=== PATIENT | male | born 1950 | race Caucasian/White ===

== ENCOUNTER 2016-11-15 07:43 | Emergency (ER) | payer MEDICARE, OTHER ==
[~2016-11-15] VITALS: Ht 177.8 cm; Wt 142.2 kg
[~2016-11-15 07:43] MED LIST: AMOX1TAB64 PO; ASPI-496 PO; CHOL2000 PO; LISI-167 PO; MULT-412 PO; ROSU5TAB PO; TAMS0.4C2 PO
[2016-11-15 09:17] VITALS: BP 119/50
== END 2016-11-15 09:19 | disposition home or self-care (01) ==
LOC: ED 08:08
DX: M79.662 Pain in left lower leg (principal); I10 Essential (primary) hypertension; E78.00 Pure hypercholesterolemia, unspecified; Z86.718 Personal history of other venous thrombosis and embolism
CPT/HCPCS: 93005; 99284

== ENCOUNTER 2017-02-09 19:21 | Emergency (ER) | payer MEDICARE, OTHER ==
[~2017-02-09] VITALS: Ht 177.8 cm; Wt 141.8 kg
[2017-02-09] MEDS ORDERED: ROSU10TA PO (20:45)
[2017-02-09 20:51] LABS: BLOOD UREA NITROGEN 24 mg/dL (7-18)
[2017-02-09 21:53] VITALS: BP 114/63
== END 2017-02-09 21:55 | disposition home or self-care (01) ==
LOC: ED 21:50
DX: R60.0 Localized edema (principal); E78.00 Pure hypercholesterolemia, unspecified; I10 Essential (primary) hypertension; Z86.718 Personal history of other venous thrombosis and embolism
CPT/HCPCS: 36415; 71020; 80048; 82040; 83880; 85025; 93005; 93970; 99285

== ENCOUNTER 2017-06-10 05:49 | Inpatient (IN) | payer MEDICARE, OTHER ==
[~2017-06-10] VITALS: Ht 177.8 cm; Wt 144.6 kg
[~2017-06-10 05:49] MED LIST changes: +FURO20TA3 PO; +LIPOZENE PO; +MULT-751 PO; +POTA10TA6 PO; +ROSU10TA PO
[2017-06-10] MEDS ORDERED: LACTATED RINGERS 1,000 ML IV SCH (06:54)
[2017-06-10] MEDS ORDERED: SUCCINYLCHOLINE 20 MG/ML, 10ML ONE (09:33)
[2017-06-10] MEDS ORDERED: PROPOFOL 10 MG/ML, 20ML ONE (09:33)
[2017-06-10] MEDS ORDERED: ROCURONIUM 10 MG/ML ONE (09:33)
[2017-06-10] MEDS ORDERED: AMPICILLIN 1 GM ONE (09:35)
[2017-06-10] MEDS ORDERED: GENTAMICIN 80 MG/2 ML ONE ×2 (09:35→10:02)
[2017-06-10] MEDS ORDERED: FENTANYL PF 100 MCG/2ML ONE (09:38)
[2017-06-10] MEDS ORDERED: HYDROmorphone 1 MG/ML, 1ML IV PRN (10:00)
[2017-06-10] MEDS ORDERED: OXYcodone 5 MG/5 ML ORAL.SOL UDC PO PRN (10:00)
[2017-06-10] MEDS ORDERED: ALBUTEROL SULFATE 2.5 MG/3 ML NPPB PRN (10:00)
[2017-06-10] MEDS ORDERED: hydrALAzine 20 MG/ML, 1ML IV PRN (10:00)
[2017-06-10] MEDS ORDERED: ACETAMINOPHEN 325 MG TABLET PO PRN (10:00)
[2017-06-10] MEDS ORDERED: FENTANYL PF 100 MCG/2ML IV PRN (10:00)
[2017-06-10] MEDS ORDERED: HYDROcodone/APAP 7.5-325MG/15ML UDC PO PRN (10:00)
[2017-06-10] MEDS ORDERED: KETOROLAC 30 MG/1 ML IV PRN (10:00)
[2017-06-10] MEDS ORDERED: MEPERIDINE/PF 25MG/0.5ML IVPush PRN (10:00)
[2017-06-10] MEDS ORDERED: ONDANSETRON 2MG/ML, 2ML IVPush PRN (10:00)
[2017-06-10] MEDS ORDERED: EPHEDRINE 50 MG/ML, 1ML IVPush PRN (10:00)
[2017-06-10] MEDS ORDERED: LABETALOL 5MG/ML, 20ML IV PRN (10:00)
[2017-06-10] MEDS ORDERED: METOPROLOL 1 MG/ML, 5ML IV PRN (10:00)
[2017-06-10] MEDS ORDERED: PROMETHAZINE 25 MG/ML, 1ML IV PRN (10:00)
[2017-06-10] MEDS ORDERED: MIDAZOLAM 1 MG/ML, 2ML ONE (10:02)
[2017-06-10] MEDS ORDERED: CEFAZOLIN 1,000 MG ONE (10:02)
[2017-06-10] MEDS ORDERED: GLYCOPYRROLATE 0.4 MG/2 ML, 2ML ONE ×2 (10:21→10:28)
[2017-06-10] MEDS ORDERED: DEXAMETHASONE 4 MG/ML, 1ML ONE (10:28)
[2017-06-10] MEDS ORDERED: ONDANSETRON 2MG/ML, 2ML ONE (10:28)
[2017-06-10] MEDS ORDERED: GLYCOPYRROLATE 0.2MG/1ML, 5ML ONE (11:43)
[2017-06-10] MEDS ORDERED: NEOSTIGMINE 1 MG/ML, 10ML ONE (11:43)
[2017-06-10 13:55] VITALS: BP 139/75
[2017-06-10] MEDS ORDERED: OPIUM/BELLADONNA SUPP.RECT 16.2-60 MG PR PRN (14:00)
[2017-06-10] MEDS ORDERED: D5%-0.45NACL+KCL 20MEQ 1,000 ML IV SCH (14:00)
[2017-06-10] MEDS ORDERED: OXYcodone/APAP 5/325MG TABLET PO PRN (14:00)
[2017-06-10] MEDS ORDERED: ONDANSETRON 2MG/ML, 2ML IV PRN (14:00)
[2017-06-10] MEDS ORDERED: HYDROmorphone 2 MG/ML, 1ML IV PRN (14:00)
[2017-06-10] MEDS: CHOLECALCIFEROL 1,000 UNIT TABLET PO SCH (14:12)
[2017-06-10] MEDS: D5%-0.45NACL+KCL 20MEQ 1,000 ML IV SCH (15:08)
[2017-06-10 20:10] VITALS: BP 122/62
[2017-06-10] MEDS ORDERED: ATORVASTATIN 20 MG TABLET PO SCH (21:00)
[2017-06-10 23:58] VITALS: BP 103/51
[2017-06-11 03:10] VITALS: BP 130/73
[2017-06-11] MEDS: D5%-0.45NACL+KCL 20MEQ 1,000 ML IV SCH ×2 (05:48)
[2017-06-11 06:53] VITALS: BP 124/63
[2017-06-11] MEDS: CHOLECALCIFEROL 1,000 UNIT TABLET PO SCH (08:41)
[2017-06-11] MEDS ORDERED: LISINOPRIL 10 MG TABLET PO SCH (09:00)
[2017-06-11] MEDS ORDERED: POTASSIUM CHLORIDE 10 MEQ TABLET.ER PO SCH (09:00)
[2017-06-11] MEDS ORDERED: FUROSEMIDE 40 MG TABLET PO SCH (09:00)
[2017-06-11] MEDS ORDERED: HYDR-3240 PO (13:29)
== END 2017-06-11 13:35 | disposition home or self-care (01) | DRG 713 ==
LOC: OUT 05:49 → 4NOR 13:20 → OUT 14:27 → 4NOR 14:28 → DCLOUNGE 06-11 13:20
PROVIDERS: ADMIT Urology; ATTEND Urology
PROC: 0V508ZZ Destruction of Prostate, Via Natural or Artificial Opening Endoscopic (ICD-10-PCS; principal; 2017-06-10 10:00)
DX: N40.1 Benign prostatic hyperplasia with lower urinary tract symptoms (principal); N13.8 Other obstructive and reflux uropathy; Z68.42 Body mass index [BMI] 45.0-49.9, adult; I10 Essential (primary) hypertension; E78.00 Pure hypercholesterolemia, unspecified; E66.9 Obesity, unspecified; N41.8 Other inflammatory diseases of prostate; Z79.82 Long term (current) use of aspirin; Z79.899 Other long term (current) drug therapy; Z88.9 Allergy status to unspecified drugs, medicaments and biological substances; Z87.440 Personal history of urinary (tract) infections; Z82.49 Family history of ischemic heart disease and other diseases of the circulatory system
CPT/HCPCS: J0290; J0690; J1100; J2250; J2405; J2704; J2710; J3010; J3490; J0330; J1580; J3480; J7120

== ENCOUNTER 2017-06-12 14:08 | Emergency (ER) | payer MEDICARE, OTHER ==
[~2017-06-12] VITALS: Ht 177.8 cm; Wt 144.5 kg
[~2017-06-12 14:08] MED LIST changes: +HYDR-3240 PO
[2017-06-12 15:28] LABS: HEMATOCRIT 39.9 % (39.2-51.8); HEMOGLOBIN 13.5 g/dL (13.7-18.0); WHITE BLOOD COUNT 11.7 x10^3/uL (3.4-10)
[2017-06-12] MEDS ORDERED: CEFTRIAXONE PMX 1GM/50ML 50 ML ONE (15:28)
[2017-06-12] MEDS ORDERED: SODIUM CHLORIDE 0.9% 1,000ML IVBOLUS ONE (15:30)
[2017-06-12] MEDS ORDERED: CEFTRIAXONE PMX 1GM/50ML 50 ML IVPB ONE (15:30)
[2017-06-12 15:38] LABS: BLOOD UREA NITROGEN 23 mg/dL (7-18)
[2017-06-12 16:36] VITALS: BP 121/65
== END 2017-06-12 16:38 | disposition home or self-care (01) ==
LOC: ED 15:08
DX: N41.0 Acute prostatitis (principal); E78.00 Pure hypercholesterolemia, unspecified; I11.0 Hypertensive heart disease with heart failure; I50.9 Heart failure, unspecified; N40.0 Benign prostatic hyperplasia without lower urinary tract symptoms
CPT/HCPCS: 36415; 71010; 80048; 81001; 82040; 83605; 85025; 87040; 87086; 93005; 96365; 99285; J0696; J7030

== ENCOUNTER → 2018-02-12 | Outpatient (CLI) | payer MEDICARE, OTHER ==
[~2018-02-12] MED LIST changes: +CEFD300C37 PO; +DOXY100C2 PO
== END | disposition home or self-care (01) ==
LOC: CFH 10:13
PROVIDERS: ATTEND Specialist
DX: I82.501 Chronic embolism and thrombosis of unspecified deep veins of right lower extremity (principal)

== ENCOUNTER → 2018-04-30 | Outpatient (CLI) | payer MEDICARE, OTHER | END | disposition home or self-care (01) | LOC: CFH 13:33 | PROVIDERS: ATTEND Nurse Practitioner | DX: M47.892 Other spondylosis, cervical region (principal); M25.78 Osteophyte, vertebrae; M47.897 Other spondylosis, lumbosacral region; M48.07 Spinal stenosis, lumbosacral region; M25.852 Other specified joint disorders, left hip; M25.851 Other specified joint disorders, right hip; N20.0 Calculus of kidney; M54.16 Radiculopathy, lumbar region; Z86.718 Personal history of other venous thrombosis and embolism | CPT/HCPCS: 72050; 72114; 73523 ==

== ENCOUNTER → 2018-05-09 | Outpatient (CLI) | payer MEDICARE, OTHER | END | disposition home or self-care (01) | LOC: RAD 10:33 | PROVIDERS: ATTEND Nurse Practitioner | DX: M48.061 Spinal stenosis, lumbar region without neurogenic claudication (principal); M54.16 Radiculopathy, lumbar region | CPT/HCPCS: 72148 ==

== ENCOUNTER 2018-10-13 14:31 | Inpatient (IN) | payer MEDICARE, OTHER ==
[~2018-10-13] VITALS: Ht 177.8 cm; Wt 135.9 kg
[~2018-10-13 14:31] MED LIST changes: -ROSU10TA PO; +ROSU10TA2 PO
[2018-10-13 15:07] LABS: BASOPHILS % (AUTO) 2 % (0-1); EOSINOPHILS # (AUTO) 0.29 x10^3/uL (0-0.4); EOSINOPHILS % (AUTO) 2 % (1-7); LYMPHOCYTES # (AUTO) 3.29 x10^3/uL (1-3.4); LYMPHOCYTES % (AUTO) 25 % (22-44); MD NO; MEAN CORPUSCULAR HEMOGLOBIN 29.5 pg (27.5-34.5); MEAN CORPUSCULAR HGB CONC 33.9 g/dL (33.2-36.2); MEAN PLATELET VOLUME 9.4 fL (7.4-10.4); MONOCYTES # (AUTO) 0.98 x10^3/uL (0.2-0.8); MONOCYTES % (AUTO) 7 % (2-9); NEUTROPHILS % (AUTO) 64 % (42-75); PLATELET COUNT 258 x10^3/uL (130-400); RED CELL DISTRIBUTION WIDTH 13.7 % (9.4-14.8)
[2018-10-13 15:13] LABS: ALBUMIN 3.9 g/dL (3.4-5.0); ANION GAP 6 mmol/L (5-15); CHLORIDE 107 mmol/L (98-107); CREATININE 1.37 mg/dL (0.7-1.3)
[2018-10-13 15:17] LABS: TROPONIN I < 0.015 ng/mL (0.000-0.045)
--- NOTE | 2018-10-13 16:00 | NUR ---
"FEELING WOOZY, DRY MOUTH, DIARHEA X3-4 DAYS", NO RECENT ABX. NO N/V. BILATERAL 2-3+ PEDAL EDEMA. REQUIRING 2L NC FOR POX >91.
[2018-10-13 16:02] LABS: ALANINE AMINOTRANSFERASE 25 U/L (12-78)
[2018-10-13 16:04] LABS: ALKALINE PHOSPHATASE 208 U/L (45-117); BILIRUBIN,TOTAL 0.6 mg/dL (0.2-1.0); TOTAL PROTEIN 7.5 g/dL (6.4-8.2)
--- NOTE | 2018-10-13 17:00 | NUR ---
REPORTS FEELING "ALITTLE BIT BETTER AFTER RT BREATHING TX. REMAINS ON 2L NC. TAKING PO SOLIDS/FLUIDS W/OUT DIFFICULTY. FREQ OVCS NOTED-PROVIDER MADE AWARE
--- NOTE | 2018-10-13 18:10 | NUR ---
ROOM AIR SATS WHILE RESTING 83-86%-PROVIDER MADE AWARE. PLACED BACK ON 2L NC. CONTINUED TO REPORT "FEELING A BIT OFF". cONTINUE TO SNACK OF CRACKERS/ICE CHIPS. UPDATED ON ESTIMATED POC
--- NOTE | 2018-10-13 19:16 | NUR ---
PROVIDER TO BEDSIDE. PATIENT INFORMED OF RECCOMENDATION TO BE ADMITTED FOR FURTHER EVAL. PATIENT AGREEABLE. TO PLACE PIV/ADMIN LASIX.
[2018-10-13] MEDS ORDERED: FUROSEMIDE 20 MG/2 ML IV ONE (19:30)
--- NOTE | 2018-10-13 20:09 | NUR ---
PATIENT CONTINUES TO REQUIRES 2L NC W/OUT NOTICEABLE WOB. DENIES DISCOMFORT HOWEVER REPORTS CONTINUED FATIGUE. PIV PLACED AND UPDATED ON ESTIMATED POC. CALL RICE IN HAND/SIDE RAILS UP.
[2018-10-13] MEDS ORDERED: FUROSEMIDE 20 MG/2 ML ONE (20:17)
[2018-10-13] MEDS ORDERED: ASPI-496 PO (20:24)
[2018-10-13] MEDS ORDERED: FURO20TA3 PO (20:25)
--- NOTE | 2018-10-13 20:56 | NUR ---
NATA WDAE (DAUGHTER) [phone]
--- NOTE | 2018-10-13 21:17 | NUR ---
SBAR REPORT GIVEN TO SURENDRA SOLANO (MED TELE), PATIENT UPDATED ON ESTIMATED POC
[2018-10-13 22:00] VITALS: BP 127/68
[2018-10-13] MEDS ORDERED: LABETALOL 5MG/ML, 20ML IVPush PRN (22:00)
[2018-10-13] MEDS ORDERED: HYDROcodone/APAP 5/325 TABLET PO PRN (22:00)
[2018-10-13] MEDS ORDERED: ONDANSETRON ODT 4 MG PO PRN (22:00)
[2018-10-13] MEDS ORDERED: ONDANSETRON 2MG/ML, 2ML IVPush PRN (22:00)
[2018-10-13] MEDS ORDERED: ACETAMINOPHEN 325 MG TABLET PO PRN (22:00)
[2018-10-13] MEDS: ATORVASTATIN 20 MG TABLET PO SCH (22:38)
[2018-10-13] MEDS: SODIUM CHLORIDE FLUSH 10ML SYR IVF SCH (22:38)
[2018-10-13] MEDS: HEPARIN 5,000 UNITS/ML, 1ML SQ SCH (22:39)
[2018-10-13 23:43] LABS: HEMOGLOBIN A1C 6.1 % (4.2-6.3)
[2018-10-13 23:46] LABS: TROPONIN I < 0.015 ng/mL (0.000-0.045)
[2018-10-14 01:35] VITALS: BP 111/58
[2018-10-14 04:30] LABS: BASOPHILS # (AUTO) 0.07 x10^3/uL (0-0.1); BASOPHILS % (AUTO) 1 % (0-1); EOSINOPHILS # (AUTO) 0.33 x10^3/uL (0-0.4); EOSINOPHILS % (AUTO) 3 % (1-7); LYMPHOCYTES % (AUTO) 22 % (22-44); MD NO; MEAN CORPUSCULAR HEMOGLOBIN 29.6 pg (27.5-34.5); MEAN CORPUSCULAR HGB CONC 33.8 g/dL (33.2-36.2); MEAN CORPUSCULAR VOLUME 87.6 fL (81-97); MEAN PLATELET VOLUME 9.5 fL (7.4-10.4); MONOCYTES # (AUTO) 1.08 x10^3/uL (0.2-0.8); MONOCYTES % (AUTO) 10 % (2-9); NEUTROPHILS # (AUTO) 7.26 x10^3/uL (1.8-6.8); NEUTROPHILS % (AUTO) 65 % (42-75); PLATELET COUNT 226 x10^3/uL (130-400); RED BLOOD COUNT 4.85 x10^6/uL (4.38-5.82); RED CELL DISTRIBUTION WIDTH 13.8 % (9.4-14.8)
[2018-10-14 04:41] LABS: ALBUMIN 3.1 g/dL (3.4-5.0); ANION GAP 5 mmol/L (5-15); CALCIUM 8.7 mg/dL (8.5-10.1); CHLORIDE 107 mmol/L (98-107)
[2018-10-14 04:48] LABS: ALANINE AMINOTRANSFERASE 23 U/L (12-78); ALKALINE PHOSPHATASE 182 U/L (45-117); BILIRUBIN,TOTAL 0.5 mg/dL (0.2-1.0); CHOL/HDL RATIO 4.8; CHOLESTEROL, TOTAL 144 mg/dL (140-239); CREATININE 1.16 mg/dL (0.7-1.3); HDL CHOL % 21 % (26-37); HDL CHOLESTEROL (DIRECT) 30 mg/dL (40-60); LDL CHOLESTEROL,CALCULATED 75 mg/dL (54-169); LDL/HDL RATIO 2.5 (0.5-3.0); TOTAL PROTEIN 6.8 g/dL (6.4-8.2); TRIGLYCERIDES 197 mg/dL (50-200); TROPONIN I < 0.015 ng/mL (0.000-0.045); VLDL CHOLESTEROL 39 mg/dL (0-25)
[2018-10-14] MEDS: HEPARIN 5,000 UNITS/ML, 1ML SQ SCH ×3 (05:54→21:05)
[2018-10-14 06:40] VITALS: BP 114/63
[2018-10-14] MEDS: FUROSEMIDE 20 MG/2 ML IV SCH ×2 (08:12→17:22)
[2018-10-14] MEDS: SODIUM CHLORIDE FLUSH 10ML SYR IVF SCH ×2 (08:12→21:05)
[2018-10-14] MEDS: POTASSIUM CHLORIDE 10 MEQ TABLET.ER PO SCH (08:12)
[2018-10-14] MEDS: ASPIRIN 81 MG TABLET EC PO SCH (08:12)
[2018-10-14 13:10] VITALS: BP 116/68
[2018-10-14 14:01] LABS: MICROSCOPIC NOT IND
[2018-10-14 14:09] LABS: CULTURE INDICATED? NO
[2018-10-14 19:15] VITALS: BP 131/73
[2018-10-14] MEDS: ATORVASTATIN 20 MG TABLET PO SCH (21:04)
[2018-10-15] VITALS (7 sets, daily range): BP systolic 106–135; BP diastolic 60–82
[2018-10-15] MEDS: HEPARIN 5,000 UNITS/ML, 1ML SQ SCH ×3 (05:31→21:15)
[2018-10-15 06:43] LABS: BASOPHILS # (AUTO) 0.19 x10^3/uL (0-0.1); BASOPHILS % (AUTO) 2 % (0-1); EOSINOPHILS # (AUTO) 0.59 x10^3/uL (0-0.4); EOSINOPHILS % (AUTO) 6 % (1-7); LYMPHOCYTES # (AUTO) 2.91 x10^3/uL (1-3.4); LYMPHOCYTES % (AUTO) 28 % (22-44); MD NO; MEAN CORPUSCULAR HEMOGLOBIN 29.7 pg (27.5-34.5); MEAN CORPUSCULAR HGB CONC 33.8 g/dL (33.2-36.2); MEAN CORPUSCULAR VOLUME 87.7 fL (81-97); MEAN PLATELET VOLUME 10.1 fL (7.4-10.4); MONOCYTES # (AUTO) 0.81 x10^3/uL (0.2-0.8); MONOCYTES % (AUTO) 8 % (2-9); NEUTROPHILS # (AUTO) 5.78 x10^3/uL (1.8-6.8); NEUTROPHILS % (AUTO) 56 % (42-75); PLATELET COUNT 208 x10^3/uL (130-400); RED BLOOD COUNT 5.13 x10^6/uL (4.38-5.82); RED CELL DISTRIBUTION WIDTH 13.9 % (9.4-14.8)
[2018-10-15 06:55] LABS: ALANINE AMINOTRANSFERASE 23 U/L (12-78); ALBUMIN 3.3 g/dL (3.4-5.0); ANION GAP 5 mmol/L (5-15); CALCIUM 8.7 mg/dL (8.5-10.1); CHLORIDE 108 mmol/L (98-107); CREATININE 1.33 mg/dL (0.7-1.3)
[2018-10-15 06:57] LABS: ALKALINE PHOSPHATASE 188 U/L (45-117); BILIRUBIN,TOTAL 0.7 mg/dL (0.2-1.0); TOTAL PROTEIN 7.1 g/dL (6.4-8.2)
[2018-10-15] MEDS: CHOLECALCIFEROL 1,000 UNIT TABLET PO SCH (09:08)
[2018-10-15] MEDS: SODIUM CHLORIDE FLUSH 10ML SYR IVF SCH ×2 (09:08→21:15)
[2018-10-15] MEDS: ASPIRIN 81 MG TABLET EC PO SCH (09:08)
[2018-10-15] MEDS: POTASSIUM CHLORIDE 10 MEQ TABLET.ER PO SCH (09:08)
[2018-10-15 11:56] LABS: CLOSTRIDIUM DIFFICILE ANTIGEN NEGATIVE; CLOSTRIDIUM DIFFICILE TOXIN NEGATIVE (Negative)
[2018-10-15] MEDS: FUROSEMIDE 20 MG TABLET PO SCH ×2 (17:06→21:14)
[2018-10-15] MEDS: ATORVASTATIN 20 MG TABLET PO SCH (21:14)
[2018-10-16 00:03] VITALS: BP 100/58
[2018-10-16] MEDS: HEPARIN 5,000 UNITS/ML, 1ML SQ SCH ×2 (05:19→13:53)
[2018-10-16 06:07] LABS: BASOPHILS # (AUTO) 0.25 x10^3/uL (0-0.1); BASOPHILS % (AUTO) 2 % (0-1); EOSINOPHILS # (AUTO) 0.56 x10^3/uL (0-0.4); EOSINOPHILS % (AUTO) 5 % (1-7); LYMPHOCYTES # (AUTO) 2.78 x10^3/uL (1-3.4); LYMPHOCYTES % (AUTO) 26 % (22-44); MD NO; MEAN CORPUSCULAR HEMOGLOBIN 29.5 pg (27.5-34.5); MEAN CORPUSCULAR VOLUME 86.6 fL (81-97); MEAN PLATELET VOLUME 9.6 fL (7.4-10.4); MONOCYTES # (AUTO) 0.91 x10^3/uL (0.2-0.8); MONOCYTES % (AUTO) 9 % (2-9); NEUTROPHILS # (AUTO) 6.11 x10^3/uL (1.8-6.8); NEUTROPHILS % (AUTO) 58 % (42-75); PLATELET COUNT 242 x10^3/uL (130-400); RED BLOOD COUNT 5.23 x10^6/uL (4.38-5.82); RED CELL DISTRIBUTION WIDTH 13.9 % (9.4-14.8)
[2018-10-16 06:21] LABS: ALBUMIN 3.3 g/dL (3.4-5.0); ANION GAP 4 mmol/L (5-15); CALCIUM 8.7 mg/dL (8.5-10.1); CHLORIDE 107 mmol/L (98-107)
[2018-10-16 06:25] LABS: ALANINE AMINOTRANSFERASE 29 U/L (12-78); ALKALINE PHOSPHATASE 192 U/L (45-117); BILIRUBIN,TOTAL 0.6 mg/dL (0.2-1.0); CREATININE 1.23 mg/dL (0.7-1.3); TOTAL PROTEIN 7.4 g/dL (6.4-8.2)
[2018-10-16 06:51] VITALS: BP 106/65
[2018-10-16] MEDS: ASPIRIN 81 MG TABLET EC PO SCH (09:29)
[2018-10-16] MEDS: POTASSIUM CHLORIDE 10 MEQ TABLET.ER PO SCH (09:29)
[2018-10-16] MEDS: FUROSEMIDE 20 MG TABLET PO SCH (09:29)
[2018-10-16] MEDS: CHOLECALCIFEROL 1,000 UNIT TABLET PO SCH (09:30)
[2018-10-16] MEDS: SODIUM CHLORIDE FLUSH 10ML SYR IVF SCH (09:30)
[2018-10-16 12:48] VITALS: BP 136/79
[2018-10-16] MEDS ORDERED: FURO20TA3 PO (14:26)
== END 2018-10-16 16:15 | disposition home or self-care (01) | DRG 682 ==
LOC: ED 17:05 → EDIP 19:37 → 4EST 21:40 → DCLOUNGE 10-16 15:58
PROVIDERS: ADMIT Family Medicine; ATTEND Family Medicine
DX: N17.9 Acute kidney failure, unspecified (principal); I50.33 Acute on chronic diastolic (congestive) heart failure; J96.01 Acute respiratory failure with hypoxia; Z68.41 Body mass index [BMI] 40.0-44.9, adult; D72.829 Elevated white blood cell count, unspecified; E66.9 Obesity, unspecified; E78.00 Pure hypercholesterolemia, unspecified; M43.6 Torticollis; E78.5 Hyperlipidemia, unspecified; G57.90 Unspecified mononeuropathy of unspecified lower limb; I11.0 Hypertensive heart disease with heart failure; I49.3 Ventricular premature depolarization; N40.0 Benign prostatic hyperplasia without lower urinary tract symptoms; Z79.899 Other long term (current) drug therapy; Z86.718 Personal history of other venous thrombosis and embolism; Z82.49 Family history of ischemic heart disease and other diseases of the circulatory system
CPT/HCPCS: 36415; 71045; 80053; 80061; 81003; 82306; 83036; 83880; 84145; 84443; 84484; 85025; 87040; 87324; 89055; 93005; 93970; 96374; 96375; 99285; C8929; G0378; J1644; Q9957; J1940

== ENCOUNTER → 2019-01-18 | Outpatient (CLI) | payer MEDICARE, OTHER ==
[~2019-01-18] MED LIST changes: +ATOR20TA37 PO; +BENZ-17 PO; +L.AC1CAP6 PO; +LEVO750T6 PO; +RIVA15TA PO; +RIVA20TA PO; +UBID200C7 PO
== END | disposition home or self-care (01) ==
LOC: CFH 13:03
PROVIDERS: ATTEND Internal Medicine
DX: R91.1 Solitary pulmonary nodule (principal)
CPT/HCPCS: 71250

== ENCOUNTER 2019-02-10 12:41 | Outpatient (CLI) | payer MEDICARE, OTHER ==
[~2019-02-10 12:41] MED LIST changes: +REGADENOSON 0.4 MG/5 ML SYRINGE ONE
== END 2019-02-10 23:59 | disposition home or self-care (01) ==
LOC: CFH 12:41
PROVIDERS: ATTEND Internal Medicine Cardiovascular Disease
DX: I50.33 Acute on chronic diastolic (congestive) heart failure (principal)
CPT/HCPCS: 78452; 93017; A9502; J2785

== ENCOUNTER 2019-02-11 11:17 | Outpatient (CLI) | payer MEDICARE, OTHER ==
[~2019-02-11 11:17] MED LIST changes: -REGADENOSON 0.4 MG/5 ML SYRINGE ONE
== END 2019-02-11 23:59 | disposition home or self-care (01) ==
LOC: CFH 11:17
PROVIDERS: ATTEND Internal Medicine Cardiovascular Disease
DX: Z02.9 Encounter for administrative examinations, unspecified (principal)

== ENCOUNTER → 2020-05-01 | Outpatient (CLI) | payer MEDICARE, OTHER | END | disposition home or self-care (01) | LOC: CFH 14:23 | PROVIDERS: ATTEND Internal Medicine Cardiovascular Disease | DX: Z13.6 Encounter for screening for cardiovascular disorders (principal); E78.2 Mixed hyperlipidemia | CPT/HCPCS: 75571 ==

== ENCOUNTER 2020-09-21 16:18 | Emergency (ER) | payer MEDICARE, OTHER ==
[~2020-09-21] VITALS: Ht 177.8 cm; Wt 122.5 kg
[~2020-09-21 16:18] MED LIST changes: +HYDR-1067 PO; -HYDR-3240 PO
--- NOTE | 2020-09-21 16:38 | NUR ---
PATIENT WALKED BACK FROM TRIAGE WITH CHIEF C/O LEFT THUMB INJURY. PATIENT STATES HE "SMASHED" HIS RIGHT THUMB 4-5 DAYS AGO WHILE WORKING ON HIS CAR. PATIENT WENT TO URGENT CARE TODAY BECAUSE THUMB IS NOT GETTING BETTER AND IS RED, URGENT CARE REFERRED PATIENT HERE DUE TO LOW O2 READING. O2 READING AT THIS TIME IS 95% ON RA, RIGHT THUMB SLIGHTLY RED, BLACK UNDER NAIL, NADN, CALL LIGHT WITHIN REACH.
[2020-09-21 17:15] VITALS: BP 153/72
== END 2020-09-21 17:17 | disposition home or self-care (01) ==
LOC: ED 17:00
DX: L03.012 Cellulitis of left finger (principal); I11.0 Hypertensive heart disease with heart failure; I50.9 Heart failure, unspecified; E66.9 Obesity, unspecified; Z68.38 Body mass index [BMI] 38.0-38.9, adult; Z86.718 Personal history of other venous thrombosis and embolism; Z79.899 Other long term (current) drug therapy
CPT/HCPCS: 99283

== ENCOUNTER → 2020-11-14 | Outpatient (CLI) | payer MEDICARE, OTHER ==
[~2020-11-14] MED LIST changes: -HYDR-1067 PO; +HYDR-2214 PO
== END | disposition home or self-care (01) ==
LOC: CFH 14:11
PROVIDERS: ATTEND Physician Assistant
DX: K44.9 Diaphragmatic hernia without obstruction or gangrene (principal); N20.0 Calculus of kidney; M51.37 Other intervertebral disc degeneration, lumbosacral region
CPT/HCPCS: 74176

== ENCOUNTER → 2021-02-27 | Outpatient (CLI) | payer MEDICARE, OTHER ==
[~2021-02-27] MED LIST changes: +REGADENOSON 0.4 MG/5 ML SYRINGE ONE
== END | disposition home or self-care (01) ==
LOC: CFH 07:17
PROVIDERS: ATTEND Internal Medicine Cardiovascular Disease
DX: I08.3 Combined rheumatic disorders of mitral, aortic and tricuspid valves (principal); I25.10 Atherosclerotic heart disease of native coronary artery without angina pectoris; I11.9 Hypertensive heart disease without heart failure
CPT/HCPCS: 78452; 93017; A9502; C8929; J2785; Q9957

== ENCOUNTER 2021-04-19 12:28 | Emergency (ER) | payer MEDICARE, OTHER ==
[~2021-04-19] VITALS: Ht 177.8 cm; Wt 127.3 kg
[~2021-04-19 12:28] MED LIST changes: -DOXY100C2 PO; +DOXY100C5 PO; -REGADENOSON 0.4 MG/5 ML SYRINGE ONE
--- NOTE | 2021-04-19 12:43 | NUR ---
Non vaccinated for covid, c/o loss of taste/smell, respiratory symptoms. Requested pt to change to gown, pt VSS at triage o2 sats 96%RA. AIDET
[2021-04-19] MEDS ORDERED: ACETAMINOPHEN 500 MG TABLET PO ONE (13:00)
[2021-04-19] MEDS ORDERED: ACETAMINOPHEN 500 MG TABLET ONE (13:07)
--- NOTE | 2021-04-19 13:16 | NUR ---
Rapid covid done by Dr Hernandez, EKG, labs, PCXR, on monitor cont pulse ox. Will continue to monitor. AIDET provided.
[2021-04-19 13:17] LABS: BASOPHILS % (AUTO) 1 % (0-1); EOSINOPHILS % (AUTO) 1 % (1-7); LYMPHOCYTES % (AUTO) 27 % (22-44); MEAN CORPUSCULAR HEMOGLOBIN 29.8 pg (27.5-34.5); MEAN CORPUSCULAR HGB CONC 34.2 g/dL (33.2-36.2); MEAN PLATELET VOLUME 10.3 fL (7.4-10.4); MONOCYTES % (AUTO) 15 % (2-9); NEUTROPHILS % (AUTO) 56 % (42-75); PLATELET COUNT 226 x10^3/uL (130-400); RED CELL DISTRIBUTION WIDTH 13.2 % (9.4-14.8)
[2021-04-19 13:26] LABS: ALANINE AMINOTRANSFERASE 56 U/L (12-78); ALBUMIN 3.2 g/dL (3.4-5.0); ANION GAP 8 mmol/L (5-15); CALCIUM 8.5 mg/dL (8.5-10.1); CHLORIDE 105 mmol/L (98-107); CREATININE 1.48 mg/dL (0.7-1.3)
[2021-04-19 13:28] LABS: ALKALINE PHOSPHATASE 62 U/L (45-117); BILIRUBIN,TOTAL 0.6 mg/dL (0.2-1.0); TOTAL PROTEIN 7.4 g/dL (6.4-8.2)
[2021-04-19] MEDS ORDERED: HEPARIN 5,000 UNITS/ML, 1ML ONE (13:28)
--- NOTE | 2021-04-19 13:44 | NUR ---
TASK RN: PT RESTING IN BED. VSS. [place].
[2021-04-19] MEDS ORDERED: FILTER 0.22 MICRON IV ONE (14:30)
[2021-04-19] MEDS ORDERED: CASIRIVIMAB 600 MG, IMDEVIMAB (REGN10987) 600 MG in SODIUM CHLORIDE 0.9% 250 ML IVPB ONE (14:30)
[2021-04-19 17:20] VITALS: BP 125/71
== END 2021-04-19 17:22 | disposition home or self-care (01) ==
LOC: ED 12:58
DX: U07.1 COVID-19 (principal); Z79.01 Long term (current) use of anticoagulants; I10 Essential (primary) hypertension; R05 Cough; R50.9 Fever, unspecified; M79.10 Myalgia, unspecified site
CPT/HCPCS: 36415; 71045; 80053; 85025; 87635; 93005; 99285; M0243

== ENCOUNTER 2021-04-25 11:32 | Emergency (ER) | payer MEDICARE, OTHER ==
[~2021-04-25] VITALS: Ht 177.8 cm; Wt 128.5 kg
[2021-04-25 11:35] VITALS: BP 142/69
== END 2021-04-25 12:27 | disposition home or self-care (01) ==
LOC: ED 11:38
DX: U07.1 COVID-19 (principal); J06.9 Acute upper respiratory infection, unspecified; I11.0 Hypertensive heart disease with heart failure; I50.9 Heart failure, unspecified; E78.5 Hyperlipidemia, unspecified; Z86.718 Personal history of other venous thrombosis and embolism